=== PATIENT | male | born 1990 | race Two or more races ===

== ENCOUNTER 2016-10-17 16:58 | Emergency (ER) | payer OTHER ==
--- NOTE | ~2016-10-17 | ER ---
PATIENT'S NAME: [facility] AGE: 26 Y [address] ROOM: [place] [address] LOCATION: [facility] ADMIT DATE: 10/17/2016 ER/Outpatient Report DISCHARGE DATE: 10/17/2016 FAMILY PHYSICIAN: PHYSICIAN, NO ATTENDING PHYSICIAN: Mandy Vicente Time of Arrival: 1658 hours. Time of Evaluation: 1714 hours. CHIEF COMPLAINT: Back injury. 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 He twisted to throw them and felt pain in his mid back. He continued to have pain all day. He has not taken anything at home for his pain. States he did have similar pain approximately a year ago from same type of injury. Denies any change in his bowel or bladder pattern. Denies having any numbness or tingling of his feet or legs. ALLERGIES: NO KNOWN ALLERGIES. MEDICATIONS: No current medications. PAST MEDICAL HISTORY: Benign. PAST SURGICAL HISTORY: Negative. SOCIAL HISTORY: Denies use of tobacco, drugs, or alcohol. REVIEW OF SYSTEMS: All negative other than those mentioned in the HPI. PHYSICAL EXAMINATION: VITAL SIGNS: He weighs 91.8 kg, blood pressure is 125/72, pulse is 71, respirations 16, temperature of 98.8 tympanic, O2 saturation is 98% on room air. GENERAL: He is awake, alert, and oriented x4. SKIN: [place], warm, and dry. RESPIRATIONS: Even and nonlabored. Lung sounds are clear throughout. [facility] 26 Y [address] ROOM: [place] [address] LOCATION: [facility] ADMIT DATE: 10/17/2016 ER/Outpatient Report DISCHARGE DATE: 10/17/2016 FAMILY PHYSICIAN: PHYSICIAN, NO ATTENDING PHYSICIAN: Mandy Vicente HEART: Regular rate and rhythm. ABDOMEN: Soft, nondistended. Bowel sounds are present. MUSCULOSKELETAL: Palpate along the spine, he does not have increased pain with palpation. No pain of the paraspinal area with palpation. He states it just hurts when he moves. LABORATORY DATA AND X-RAYS: X-rays were completed of the T-spine and L-spine. No bony abnormality is seen. IMPRESSION: Back pain. PLAN: Home, rest, ice, or heat to the back tonight. Prescription was written for Flexeril and [place]. A note was written to excuse him from work. He is to follow up with primary provider in the next 2 to 3 days if symptoms persist or worsen. He verbalized understanding. SUKH WAKEFIELD APRN FOR MD LORRIE TRIVEDI/bekah /[id number] d: 10/18/16 0113 t: 10/23/16 1015, OUTPATIENT REPORT
== END 2016-10-17 17:47 | disposition disaster alternative care site (69) ==
LOC: GACC 16:58
DX: M54.6 Pain in thoracic spine (principal); X50.1XXA Overexertion from prolonged static or awkward postures, initial encounter; Y93.89 Activity, other specified